=== PATIENT | female | born 1980 | race Caucasian/White ===

== ENCOUNTER → 2017-07-02 | Outpatient (CLI) | payer OTHER ==
--- NOTE | 2017-07-03 21:58 | US ---
EXAMINATION TYPE: US thyroid st tissue head/neck DATE OF EXAM: 07/02/2017 COMPARISON: NONE CLINICAL HISTORY: E04.9 Goiter,. Reginald disease, on medication GLAND SIZE: Right Lobe: 3.9 x 1.5 x 2.0 cm Overall Parenchyma: heterogenous Left Lobe: 4.5 x 1.6 x 1.6 cm Overall Parenchyma: heterogeneous Isthmus Thickness: 0.5 cm NODULES RIGHT: # of nodules measured on right: 0 LEFT: # of nodules measured on left: 0 ISTHMUS: # of nodules measured in the isthmus: 0 Bilateral neck scanned, no evidence of lymphadenopathy. Diffusely heterogenous IMPRESSION: Normal thyroid
--- NOTE | 2017-07-05 07:11 | USB ---
Reason for exam: clinical finding. Physical Findings: Nurse did not find any significant physical abnormalities on exam. US Breast BILAT Right breast ultrasound includes all four quadrants, the retroareolar region and axilla. Finding demonstrates no cystic or solid lesion seen. Left breast ultrasound includes all four quadrants, the retroareolar region and axilla. Finding demonstrates no cystic or solid lesion seen. These results were verbally communicated with the patient and result sheet given to the patient on 07/02/17. ASSESSMENT: Incomplete: need additional imaging evaluation, BI-RAD 0 RECOMMENDATION: Follow-up diagnostic mammogram of both breasts.
--- NOTE | 2017-07-05 07:12 | MM ---
Reason for exam: additional evaluation requested from abnormal screening. Baseline mammogram. MG 3D Diag Mammo W/Cad WICHO Bilateral CC and MLO view(s) were taken. The breast tissue is heterogeneously dense. This may lower the sensitivity of mammography. There is no discrete abnormality. These results were verbally communicated with the patient and result sheet given to the patient on 07/02/17. ASSESSMENT: Benign, BI-RAD 2 RECOMMENDATION: Routine screening mammogram of both breasts in 1 year. Manage on a clinical basis with regard to nipple discharge.
== END | disposition home or self-care (01) ==
LOC: RADUSWWP 14:48
PROVIDERS: ATTEND Family Medicine
DX: R92.8 Other abnormal and inconclusive findings on diagnostic imaging of breast (principal); N64.3 Galactorrhea not associated with childbirth; E04.9 Nontoxic goiter, unspecified
CPT/HCPCS: 76536; 76641; G0204; G0279

== ENCOUNTER → 2019-11-01 | Outpatient (CLI) | payer OTHER ==
--- NOTE | 2019-11-01 11:05 | US ---
EXAMINATION TYPE: US pelvic complete DATE OF EXAM: 11/01/2019 COMPARISON: NONE CLINICAL HISTORY: R10.32 left lower quad pain R31.9 blood in urine. Left pelvic pain and bleeding, 3, para 2, miscarriage 1, history of and tubal ligation. TECHNIQUE: . Transabdominal sonographic images of the pelvis were acquired. Transvaginal sonographi c images were medically necessary to better assess the following anatomy: ovaries and endometrium Date of LMP: 10/16/2019 EXAM MEASUREMENTS: Uterus: 9.4 x 4.7 x 5.7 cm Endometrial Stripe: 0.6 cm Right Ovary: 3.3 x 2.0 x 2.1 cm Left Ovary: 3.2 x 2.3 x 2.7 cm 1. Uterus: anteverted, mildly heterogeneous, multiple nabothian cysts 2. Endometrium: wnl 3. Right Ovary: wnl 4. Left Ovary: 1.7 x 1.5 x 1.6cm cyst Spectral, color and waveform doppler imaging shows good arterial and venous flow within the ovaries ; there is no evidence for ovarian torsion. 5. Bilateral Adnexa: wnl 6. Posterior cul-de-sac: small amount of free fluid IMPRESSION: 1. Uterine nabothian cysts within cervix. 2. Left ovarian cyst. Follow-up is recommended in 6 weeks or following the next normal menstrual ericka od.
== END | disposition home or self-care (01) ==
LOC: RADUSWWP 09:42
PROVIDERS: ATTEND Family Medicine
DX: N88.8 Other specified noninflammatory disorders of cervix uteri (principal); N83.202 Unspecified ovarian cyst, left side; Z88.8 Allergy status to other drugs, medicaments and biological substances; Z91.018 Allergy to other foods; Z91.040 Latex allergy status
CPT/HCPCS: 76830; 76856

== ENCOUNTER 2020-07-09 01:51 | Emergency (ER) | payer BC, OTHER ==
[2020-07-09 02:15] LABS: Appearance,Urine Cloudy (Clear); Bacteria,Urine Rare /hpf; Bilirubin,Urine Negative (Negative); Blood,Urine Moderate (Negative); Color,Urine Yellow; Glucose,Urine (UA) Negative (Negative); Ketones,Urine Negative (Negative); Leukocyte Esterase,Urine Moderate (Negative); Mucus,Urine Rare /hpf; Nitrite,Urine Negative (Negative); PH, Urine 5.5 (5.0-8.0); Protein,Urine Trace (Negative); RBC,Urine 72 /hpf (0-5); Specific Gravity,Urine 1.024 (1.001-1.035); Squamous Epithelial Cell,Urine 4 /hpf (0-4); Urobilinogen,Urine <2.0 mg/dL (<2.0); WBC,Urine 5 /hpf (0-5)
[2020-07-09] MEDS ORDERED: SODIUM CHLORIDE 0.9% 1,000 ML IV STA (02:21)
[2020-07-09] MEDS ORDERED: KETOROLAC 15 MG/ML 1 ML VIAL IVP STA (02:21)
--- NOTE | 2020-07-09 02:40 | ED ---
Abdominal Pain HPI - General Chief Complaint: Abdominal Pain Stated Complaint: Lt flank pain Time Seen by Provider: 07/09/20 02:05 Source: patient, family Mode of arrival: ambulatory Limitations: no limitations - History of Present Illness Initial Comments: Lucy is a 40 -year-old female who presents to the ER this morning for evaluation of severe left lower abdominal pain. Patient reports she had an episode similar to this approximately a month ago pain was located in her left side abdomen radiating into the pelvis. Previous episode lasted for a pproximately 2 hours and resolved. Patient reports she's been doing well since that time. She was in her usual state of health throughout the day today aside from having irregular frequent menses. Patient states that during the night she developed severe left-sided flank pain radiating into her pelvis. Pain is associated with urinary urgency but no dysuria. She is unable to assess that she's having any hematuria due to being on her menses. She denies any change in bowel habits. She has no history of diverticulitis, diverticulosis, Crohn's or ulcerative colitis. Patient has no history of kidney stones. - Related Data Home Medications Medication Instructions Recorded Confirmed Levothyroxine Sodium [Synthroid] 75 mcg PO DAILY 07/13/14 09/27/15 Magnesium Oxide [Mag-Ox] 400 mg PO DAILY 07/13/14 09/27/15 Methocarbamol [Robaxin] 1,000 mg PO QID 07/13/14 09/27/15 Montelukast [Singulair] 10 mg PO DAILY 07/13/14 09/27/15 RX: lisinopriL 40 mg PO DAILY 07/13/14 09/27/15 amLODIPine BESYLATE [Norvasc] 5 mg PO DAILY 07/13/14 09/27/15 hydroCHLOROthiazide [Hydrodiuril] 12.5 mg PO DAILY 07/13/14 09/27/15 traMADol HCl [Ultram] 50 mg PO Q4H PRN 07/13/14 09/27/15 Albuterol Sulfate [Ventolin HFA] 1 puff INHALATION BID 09/27/15 09/27/15 Previous Rx's Medication Instructions Recorded Levofloxacin [Levaquin] 500 mg PO DAILY #10 tab 09/27/15 RX: Albuterol Nebulized [Ventolin 2.5 mg INHALATION Q4H PRN #25 nebu 09/27/15 Nebulized] methylPREDNISolone [Medrol Dose 4 mg PO DIRECTED #1 pack 09/27/15 Pack] Ketorolac [Toradol] 10 mg PO Q6HR #20 tab 07/09/20 Ondansetron Odt [Zofran Odt] 4 mg PO Q8HR PRN #12 tab 07/09/20 Tamsulosin [Flomax] 0.4 mg PO DAILY #7 cap 07/09/20 Allergies Allergy/AdvReac Type Severity Reaction Status Date / Time avocado [Avocado] Allergy Rash/Hives Verified 07/09/20 02:01 banana [Banana] Allergy Rash/Hives Verified 07/09/20 02:01 kiwi Allergy Rash/Hives Verified 07/09/20 02:01 latex Allergy Rash/Hives Verified 07/09/20 02:01 water chestnut Allergy Swelling Verified 07/09/20 02:01 aspartame AdvReac Nausea Verified 07/09/20 02:01 Review of Systems ROS Statement: Those systems with pertinent positive or pertinent negative responses have been documented in the HPI. ROS Other: All systems not noted in ROS Statement are negative. Past Medical History Past Medical History: Asthma, Diabetes Mellitus, Fibromyalgia, Hyperlipidemia, Hypertension, Thyroid Disorder Additional Past Medical History / Comment(s): insomnia History of Any Multi-Drug Resistant Organisms: None Reported Past Surgical History: Section, Cholecystectomy, Tonsillectomy, Tubal Ligation Past Psychological History: No Psychological Hx Reported Smoking Status: Current every day smoker Past Alcohol Use History: None Reported Past Drug Use History: None Reported General Exam - General Exam Comments Initial Comments: Physical Exam GENERAL: Patient is well-developed and well-nourished. Patient is nontoxic and well-hydrated and is in no distress. HENT: Normocephalic, Atraumatic. EYES: PERRL, EOMI PULMONARY: Unlabored respirations. CARDIOVASCULAR: RRR Warm and well perfused extremities ABDOMEN: Non-distended Tender to palpation in LLQ and suprapubic Tender to percussion left flank SKIN: No rashes or bruising : Deferred NEUROLOGIC: Alert and oriented Normal speech Normal gait MUSCULOSKELETAL: Moving all extremities with no apparent injury PSYCHIATRIC: No SI/HI Limitations: no limitations Course Vital Signs 07/09/20 07/09/20 01:54 03:00 Temperature 98.4 F Pulse Rate 104 H 84 Respiratory 20 17 Rate Blood Pressure 133/91 125/70 O2 Sat by Pulse 99 98 Oximetry Medical Decision Making - Medical Decision Making She was seen and evaluated history is obtained from patient History and physical exam are concerning for left-sided flank pain likely kidney stone versus diverticulitis Even the patient's pain I offered morphine however she has a history of substance abuse would prefer to be treated with nonnarcotic medications. A single dose of Toradol was given Labs are obtained patient has mild acute kidney injury, IV fluid bolus is infusing Computed tomography scan confirms left-sided 6 mm UVJ stone Return to the room to discuss results with the patient who is sleeping soundly, pain is very well managed with Toradol At this time patient's comfortable with plan for discharge home, she'll be presc ribed Toradol, Zofran and Flomax and referred to urology for follow-up Close return parameters were discussed of questions pertaining care were answered patient is discharged home in stable condition - Lab Data Result diagrams: 07/09/20 02:34 07/09/20 02:34 Lab Results 07/09/20 07/09/20 07/09/20 Range/Units 02:07 02:34 02:34 WBC 14.2 H (3.8-10.6) k/uL RBC 4.53 (3.80-5.40) m/uL Hgb 14.0 (11.4-16.0) gm/dL Hct 42.6 (34.0-46.0) % MCV 94.1 (80.0-100.0) fL MCH 30.8 (25.0-35.0) pg MCHC 32.7 (31.0-37.0) g/dL RDW 12.4 (11.5-15.5) % Plt Count 276 (150-450) k/uL Neutrophils % 77 % Lymphocytes % 14 % Monocytes % 4 % Eosinophils % 3 % Basophils % 1 % Neutrophils # 11.0 H (1.3-7.7) k/uL Lymphocytes # 2.0 (1.0-4.8) k/uL Monocytes # 0.6 (0-1.0) k/uL Eosinophils # 0.4 (0-0.7) k/uL Basophils # 0.1 (0-0.2) k/uL Sodium 135 L (137-145) mmol/L Potassium 3.4 L (3.5-5.1) mmol/L Chloride 103 (98-107) mmol/L Carbon Dioxide 22 (22-30) mmol/L Anion Gap 10 mmol/L BUN 22 H (7-17) mg/dL Creatinine 1.33 H (0.52-1.04) mg/dL Est GFR (CKD-EPI)AfAm 58 (>60 ml/min/1.73 sqM) Est GFR (CKD-EPI)NonAf 50 (>60 ml/min/1.73 sqM) Glucose 185 H (74-99) mg/dL Calcium 9.5 (8.4-10.2) mg/dL Total Bilirubin 0.4 (0.2-1.3) mg/dL AST 17 (14-36) U/L ALT 13 (4-34) U/L Alkaline Phosphatase 78 (38-126) U/L Total Protein 7.3 (6.3-8.2) g/dL Albumin 4.1 (3.5-5.0) g/dL Lipase 174 (23-300) U/L Urine Color Yellow Urine Appearance Cloudy H (Clear) Urine pH 5.5 (5.0-8.0) Ur Specific [place] 1.024 (1.001-1.035) Urine Protein Trace H (Negative) Urine Glucose (UA) Negative (Negative) Urine Ketones Negative (Negative) Urine Blood Moderate H (Negative) Urine Nitrite Negative (Negative) Urine Bilirubin Negative (Negative) Urine Urobilinogen <2.0 (<2.0) mg/dL Ur Leukocyte Esterase Moderate H (Negative) Urine RBC 72 H (0-5) /hpf Urine WBC 5 (0-5) /hpf Ur Squamous Epith Cells 4 (0-4) /hpf Urine Bacteria Rare H (None) /hpf Urine Mucus Rare H (None) /hpf Disposition Clinical Impression: Nephrolithiasis Disposition: HOME SELF-CARE Condition: Stable Additional Instructions: As we discussed use of a kidney stone on the left side at the bladder, kidney stone measuring slightly over 6 mm. At this time the most important thing is pain management, he can take Toradol for pain, make sure he takes with food Make sure drinking plenty of fluids and staying hydrated, this will prevent injury to her kidney and will help pass the kidney stone. Return to the ER via any worsening pain, pain not managed by the home medications. Any fevers vomiting signs of infection or any new or concerning symptoms. Prescriptions: Tamsulosin [Flomax] 0.4 mg PO DAILY #7 cap Ketorolac [Toradol] 10 mg PO Q6HR #20 tab Ondansetron Odt [Zofran Odt] 4 mg PO Q8HR PRN #12 tab PRN Reason: nausea Is patient prescribed a controlled substance at d/c from ED?: No Referrals: Boubacar Kwok MD [Primary Care Provider] - 1-2 days Nael Ramirez MD [STAFF PHYSICIAN] - 1-2 days
[2020-07-09 02:43] LABS: Basophils # (A) 0.1 k/uL (0-0.2); Basophils % (A) 1 %; Eosinophils # (A) 0.4 k/uL (0-0.7); Eosinophils % (A) 3 %; HCT 42.6 % (34.0-46.0); Lymphocytes % (A) 14 %; MCH 30.8 pg (25.0-35.0); MCHC 32.7 g/dL (31.0-37.0); MCV 94.1 fL (80.0-100.0); Mean Platelet Volume 7.7; Monocytes # (A) 0.6 k/uL (0-1.0); Monocytes % (A) 4 %; Neutrophils % (A) 77 %; Platelet Count 276 k/uL (150-450); RBC 4.53 m/uL (3.80-5.40); RDW 12.4 % (11.5-15.5); WBC 14.2 k/uL (3.8-10.6)
[2020-07-09 02:55] LABS: Albumin 4.1 g/dL (3.5-5.0); Calcium 9.5 mg/dL (8.4-10.2); Potassium 3.4 mmol/L (3.5-5.1); Total Bilirubin 0.4 mg/dL (0.2-1.3); Total Protein 7.3 g/dL (6.3-8.2)
--- NOTE | 2020-07-09 03:59 | CT ---
EXAM: CT Abdomen and Pelvis With Intravenous Contrast CLINICAL HISTORY: LLQ pain TECHNIQUE: Axial computed tomography images of the abdomen and pelvis with intravenous contrast. CTDI is 45.07 mGy and DLP is 2153.80 mGy-cm. This CT exam was performed using one or more of the following dose reduction techniques: automated exposure control, adjustment of the mA and/or kV according to patient size, and/or use of iterative reconstruction technique. COMPARISON: No relevant prior studies available. FINDINGS: Limitations: There is respiratory artifact which degrades image quality on multiple image slices. Lung bases: Unremarkable. No mass. No consolidation. ABDOMEN: Liver: Unremarkable. No mass. Gallbladder and bile ducts: Status post cholecystectomy. No ductal dilation. Pancreas: Unremarkable. No mass. No ductal dilation. Spleen: Unremarkable. No splenomegaly. Adrenals: Unremarkable. No mass. Kidneys and ureters: 6.7 mm distal left ureteral stone adjacent to the left UVJ with proximal mild left ureterectasis, perinephric and periureteral fat stranding. Only minimal left caliectasis. The right kidney demonstrates normal enhancement without hydronephrosis or obstructing calcifications. Delayed phase imaging demonstrates normal excreted contrast in the right renal collecting system. There is delayed excretion involving the left renal collecting system. Stomach and bowel: Unremarkable. No obstruction. No mucosal thickening. PELVIS: Appendix: No findings to suggest acute appendicitis. Bladder: Unremarkable. No mass. Reproductive: Unremarkable as visualized. ABDOMEN and PELVIS: Intraperitoneal space: Unremarkable. No free air. No significant fluid collection. Bones/joints: No acute fracture. No dislocation. Soft tissues: Unremarkable. Vasculature: Unremarkable. No abdominal aortic aneurysm. Lymph nodes: Unremarkable. No enlarged lymph nodes. IMPRESSION: 6.7 mm distal left ureteral stone adjacent to the left UVJ with proximal mild left ureterectasis, perinephric and periureteral fat stranding. Only minimal left caliectasis.
[2020-07-09 05:17] VITALS: BP 125/84; PULSE 73; RESP 18; TEMP 97.6
== END 2020-07-09 05:12 | disposition home or self-care (01) ==
LOC: EC 01:51
DX: N20.2 Calculus of kidney with calculus of ureter (principal); N17.9 Acute kidney failure, unspecified; J45.909 Unspecified asthma, uncomplicated; M79.7 Fibromyalgia; I10 Essential (primary) hypertension; E07.9 Disorder of thyroid, unspecified; F17.200 Nicotine dependence, unspecified, uncomplicated; Z79.890 Hormone replacement therapy; Z79.51 Long term (current) use of inhaled steroids; Z79.899 Other long term (current) drug therapy; Z91.018 Allergy to other foods; Z91.040 Latex allergy status; Z90.49 Acquired absence of other specified parts of digestive tract; Z98.890 Other specified postprocedural states; Z98.51 Tubal ligation status
CPT/HCPCS: 36415; 80053; 83690; 85025; 81001; 74177; 99284; 96374; 96361 ×2; J1885; Q9967

== ENCOUNTER → 2020-08-15 | Outpatient (CLI) | payer BC, OTHER ==
--- NOTE | 2020-08-16 07:56 | XR ---
EXAMINATION TYPE: XR KUB DATE OF EXAM: 08/15/2020 COMPARISON: CT abdomen pelvis 07/09/2020 HISTORY: Left-sided kidney stone TECHNIQUE: Supine abdomen FINDINGS: Surgical clips are in the left midabdomen and left hemipelvis and within the right upper qu adrant. A right hemipelvis tubal ligation clip is not identified. Normal bowel gas is present. Mild f ecal debris is through the colon. Psoas margins are normal. No mass effect is evident. No suspicious renal calcifications. There appears to be persistent of the distal left ureteral calcification left h emipelvis. IMPRESSION: 1. Persistent calcification within the left hemipelvis may be a distal ureteral stones.
== END | disposition home or self-care (01) ==
LOC: RAD 16:36
PROVIDERS: ATTEND Urology
DX: N20.1 Calculus of ureter (principal)
CPT/HCPCS: 74018

== ENCOUNTER → 2020-08-20 | Outpatient (CLI) | payer BC, OTHER ==
[2020-08-20 12:10] LABS: Basophils # (A) 0.1 k/uL (0-0.2); Basophils % (A) 1 %; Eosinophils # (A) 0.4 k/uL (0-0.7); Eosinophils % (A) 4 %; HGB 14.5 gm/dL (11.4-16.0); Lymphocytes # (A) 2.2 k/uL (1.0-4.8); Lymphocytes % (A) 25 %; MCH 31.5 pg (25.0-35.0); MCHC 34.5 g/dL (31.0-37.0); MCV 91.4 fL (80.0-100.0); Mean Platelet Volume 7.7; Monocytes # (A) 0.4 k/uL (0-1.0); Monocytes % (A) 4 %; Neutrophils # (A) 5.8 k/uL (1.3-7.7); Neutrophils % (A) 64 %; Platelet Count 276 k/uL (150-450); RBC 4.59 m/uL (3.80-5.40); RDW 12.2 % (11.5-15.5)
[2020-08-20 12:32] LABS: Calcium 9.3 mg/dL (8.4-10.2)
== END | disposition home or self-care (01) ==
LOC: LABPAT 10:52
PROVIDERS: ATTEND Urology
DX: Z01.818 Encounter for other preprocedural examination (principal); N20.1 Calculus of ureter
CPT/HCPCS: 80048; 85025

== ENCOUNTER 2020-08-29 07:44 | Day surgery (SDC) | payer BC, OTHER ==
[2020-08-27 08:50] VITALS: BMI 40.6
--- NOTE | 2020-08-28 16:44 | P.GSHP ---
History of Present Illness H&P Date: 08/19/20 Chief Complaint: Left-sided abdominal pain, urinary urgency The patient is a 40-year-old white female with no prior history of urolithiasis. She experienced left flank and left lower quadrant abdominal pain in June 2020. A computed tomography scan showed mild left hydronephrosis due to a 7 mm left distal ureteral calculus. She continues to experience intermittent pain, associated with urinary frequency and urgency. A KUB x-ray shows a calculus at the left ureterovesical junction. Alternative treatment options were reviewed in detail. These include continued observation, ESWL, and ureteroscopy with laser lithotripsy. She has elected to undergo the latter. - Constitutional Constitutional: Reports chills - Gastrointestinal Gastrointestinal: Reports nausea, Reports vomiting - Genitourinary (Female) Genitourinary: Reports flank pain, Reports urgency, Reports urinary frequency, Denies hematuria Past Medical History Past Medical History: Asthma, Diabetes Mellitus, Fibromyalgia, Hyperlipidemia, Hypertension, Thyroid Disorder Additional Past Medical History / Comment(s): insomnia History of Any Multi-Drug Resistant Organisms: None Reported Past Surgical History: Section, Cholecystectomy, Tonsillectomy, Tubal Ligation Past Psychological History: No Psychological Hx Reported Smoking Status: Current every day smoker Past Alcohol Use History: None Reported Past Drug Use History: None Reported - Past Family History Father Family Medical History: Cancer Medications and Allergies Home Medications Medication Instructions Recorded Confirmed Type Methocarbamol [Robaxin] 1,000 mg PO QID 07/13/14 08/27/20 History amLODIPine BESYLATE [Norvasc] 5 mg PO DAILY 07/13/14 08/27/20 History hydroCHLOROthiazide [Hydrodiuril] 12.5 mg PO DAILY 07/13/14 08/27/20 History lisinopriL 40 mg PO DAILY 07/13/14 08/27/20 History Albuterol Nebulized [Ventolin 2.5 mg INHALATION Q4H PRN #25 nebu 09/27/15 08/27/20 Rx Nebulized] Albuterol Sulfate [Ventolin HFA] 1 puff INHALATION BID 09/27/15 08/27/20 History Levothyroxine Sodium [Synthroid] 150 mcg PO DAILY 08/27/20 08/27/20 History Semaglutide [Ozempic] 0.25 mg SQ SA 08/27/20 08/27/20 History traMADol HCl [Ultram] 50 mg PO Q4HR PRN 08/27/20 08/27/20 History Allergies Allergy/AdvReac Type Severity Reaction Status Date / Time avocado [Avocado] Allergy Rash/Hives Verified 08/27/20 08:39 banana [Banana] Allergy Rash/Hives Verified 08/27/20 08:39 kiwi Allergy Rash/Hives Verified 08/27/20 08:39 latex Allergy Rash/Hives Verified 08/27/20 08:39 water chestnut Allergy Swelling Verified 08/27/20 08:39 aspartame AdvReac Nausea Verified 08/27/20 08:39 Surgical - Exam - General well developed, well nourished, no distress - Neck no masses, trachea midline - Respiratory normal respiratory effort, clear to auscultation - Cardiovascular Rhythm: regular Abnormal Heart Sounds: no systolic murmur, no diastolic murmur, no rub, no S3 Gallop, no S4 Gallop, no click, no other - Abdomen Abdomen: soft, tender (Mild left lower quadrant tenderness to palpation), no guarding, no rigid, no rebound - Psychiatric oriented to time, oriented to person, oriented to place, speech is normal, memory intact Results - Imaging CT scan - abdomen: report reviewed, image reviewed CT scan - pelvis: report reviewed, image reviewed Assessment and Plan (1) Calculus of ureter Status: Acute Code(s): N20.1 - CALCULUS OF URETER SNOMED Code(s): 17811077 Plan: Cystoscopy, left ureteroscopy with Holmium laser lithotripsy, possible stone basketing, possible left ureteral stent insertion. The procedure has been reviewed in detail with the patient. She has been made aware of potential risks, which include anesthesia, bleeding, infection, inability to successfully remove the calculus, and ureteral injury. She is aware of the possible need for a ureteral stent postoperatively.
[~2020-08-29 07:44] MED LIST: DEXAMETHASONE SOD PHOSPHATE 4 MG/ML 1 ML VIAL IV ONE; HYDROmorphone 0.5 MG/0.5 ML SYRINGE IVP PRN; LACTATED RINGERS 1,000 ML IV SCH; LIDOCAINE 1% (10MG/ML) FOR IV START INTRADERMA PRN; MIDAZOLAM 2 MG/2 ML VIAL IV PRN; ONDANSETRON 4 MG/2 ML VIAL IVP ONE
[2020-08-29 08:07] VITALS: RESP 16
[2020-08-29 08:30] LABS: Glucose,Whole Blood 151 mg/dL (75-99)
[2020-08-29] MEDS ORDERED: PROPOFOL 10 MG/ML 20 ML VIAL IV ONE (09:05)
[2020-08-29] MEDS ORDERED: LIDOCAINE 1% INJ 10MG/ML (20 ML MDV) ONE (09:05)
[2020-08-29] MEDS ORDERED: fentaNYL (PF) 50 MCG/ML 2 ML AMP ONE (09:05)
[2020-08-29] MEDS ORDERED: SUCCINYLCHOLINE CHLORIDE 100 MG/5 ML SYR IV ONE (09:05)
[2020-08-29] MEDS ORDERED: MIDAZOLAM 2 MG/2 ML VIAL ONE (09:05)
[2020-08-29 09:07] LABS: African American GFR (CKD) >90 (>60 ml/min/1.73 sqM); Anion Gap 7 mmol/L; Blood Urea Nitrogen 12 mg/dL (7-17); Calcium 8.4 mg/dL (8.4-10.2); Carbon Dioxide 23 mmol/L (22-30); Chloride 106 mmol/L (98-107); Glucose 133 mg/dL (74-99); Non-African American GFR(CKD) >90 (>60 ml/min/1.73 sqM); Potassium 3.8 mmol/L (3.5-5.1); Sodium 136 mmol/L (137-145)
[2020-08-29] MEDS ORDERED: IOPAMIDOL-370 50ML BTL MISCELLANE ONE ×2 (09:35)
--- NOTE | 2020-08-29 10:08 | P.OP ---
Date of Procedure: 08/29/20 Preoperative Diagnosis: Left ureteral calculus Postoperative Diagnosis: Same Procedure(s) Performed: Cystoscopy, left retrograde pyelogram, left ureteroscopy with Holmium laser lithotripsy Anesthesia: SOHANA Surgeon: Nael Ramirez Estimated Blood Loss (ml): 0 IV fluids (ml): 800 Pathology: none sent Condition: stable Disposition: PACU Indications for Procedure: The patient is a 40-year-old white female with no prior history of urolithiasis. She experienced left flank and left lower quadrant abdominal pain in June 2020. A computed tomography scan showed mild left hydronephrosis due to a 7 mm left distal ureteral calculus. She continues to experience intermittent pain, associated with urinary frequency and urgency. A KUB x-ray shows a calculus at the left ureterovesical junction. Alternative treatment options were reviewed in detail. These include continued observation, ESWL, and ureteroscopy with laser lithotripsy. She has elected to undergo the latter. Operative Findings: Left distal ureteral calculus, fragmented completely. Description of Procedure: The patient was taken to the operating room and placed in the dorsolithotomy position, with legs supported in Stewart stirrups. The external genitalia was prepped and draped sterilely. The 30 lens was used to introduce the None cystoscopic sheath through the urethra and into the bladder under direct vision. The bladder was examined in its entirety. Both ureteral orifices were normal anatomic location and configuration, and clear urine effluxed from both. No tumors or foreign bodies were seen. Using a 10-[place] cone-tipped catheter, a left retrograde pyelogram was performed. The calculus was identified 1-2 cm proximal to the ureterovesical junction. The cystoscope was removed. The Rí[place] semirigid ureteroscope was advanced into the bladder, and the left ureteral orifice was cannulated. The ureteroscope was advanced up to the calculus, which measured approximately 5 mm in size. The 200 micron Holmium laser probe was passed through the ureteroscope, and lithotripsy was performed utilizing a dusting mode with retropulsion. The calculus fragmented well. This was done until the only remaining particles were dustlike in size. The semirigid ureteroscope was removed, and the flexible ureteroscope was passed into the bladder. The left ureteral orifice was cannulated, and the ureteroscope was advanced up to the left renal pelvis to ensure that a calculus fragment had not migrated proximally. No additional calculus fragments were identified. The ureter was inspected as the ureteroscope was withdrawn. There was minimal edema at the site of the calculus impaction, but no evidence of ureteral truama. The patient tolerated the procedure well and was taken to the recovery room in stable cond ition. [facility] [place] Report: Procedure Acuity: Elective Stone Size and Location: 5 mm, left distal ureter Ureteral Dilation: No Ureteral Access Sheath Used: No Stone Sent for Analysis: No All Stones/Fragments Were Removed with a Basket: No Complications: No Preoperative Antibiotics Given: Yes Stent Placed: No Discharge Medications: None
[2020-08-29 10:17] VITALS: TEMP 97.7
--- NOTE | 2020-08-29 10:56 | XR ---
EXAMINATION TYPE: XR KUB DATE OF EXAM: 08/29/2020 COMPARISON: 08/15/2020 INDICATION: Preop left ureteral calculus TECHNIQUE: Single view abdomen supine view FINDINGS: There is a normal bowel gas pattern. Psoas margins are normal. No organomegaly is present. Surgical clips are within the pelvis and pelvic inlet. Calcifications are in the lower lateral left p jacky appears stable from the comparison IMPRESSION: 1. No significant change from comparison.
--- NOTE | 2020-08-29 11:01 | FL ---
Fluoroscopy INDICATION: Pain FINDINGS: Fluoroscopy time: 29 seconds. Images obtained: 2. IMPRESSIONS: 1. Documentation of fluoroscopy.
[2020-08-29 11:41] VITALS: BP 112/73; PULSE 87
== END 2020-08-29 11:45 | disposition home or self-care (01) ==
LOC: OR 07:44
PROVIDERS: ATTEND Urology
DX: N13.2 Hydronephrosis with renal and ureteral calculous obstruction (principal); I10 Essential (primary) hypertension; E78.5 Hyperlipidemia, unspecified; J45.909 Unspecified asthma, uncomplicated; E11.9 Type 2 diabetes mellitus without complications; M79.7 Fibromyalgia; E07.9 Disorder of thyroid, unspecified; G47.00 Insomnia, unspecified; Z90.49 Acquired absence of other specified parts of digestive tract; Z98.891 History of uterine scar from previous surgery; Z98.51 Tubal ligation status; Z90.89 Acquired absence of other organs; F17.200 Nicotine dependence, unspecified, uncomplicated; Z80.9 Family history of malignant neoplasm, unspecified; Z79.890 Hormone replacement therapy; Z79.899 Other long term (current) drug therapy; Z91.040 Latex allergy status; Z91.018 Allergy to other foods
CPT/HCPCS: 81025; 80048; 74420; 74018; 52353; C1758; J2250; J1100; J0690; J2405; J2001; J3010; J0330; J2704; Q9967

== ENCOUNTER → 2023-11-08 | Outpatient (CLI) | payer OTHER ==
--- NOTE | 2023-11-08 21:17 | MR ---
EXAMINATION TYPE: MR knee RT wo con DATE OF EXAM: 11/08/2023 COMPARISON: None HISTORY: Right knee Pain and swelling TECHNIQUE: Multiplanar, multisequence imaging of the right knee is performed without IV contrast. FINDINGS: The osseous structures are intact with no bone contusion or fracture. There is a large joint effusion. This surface of the lateral patellar facet cartilage is irregular and there is abnormal signal intens ity consistent with chondromalacia patella and fraying of the cartilage. There is no significant thin kari of the cartilage in all 3 compartments of the knee. The collateral and cruciate ligaments are intact. There is no meniscal tear. The patellar and quadriceps tendons are intact. IMPRESSION: 1. Large joint effusion. 2. 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 3. No ligamentous or meniscal injury.
== END | disposition home or self-care (01) ==
LOC: RADMRIMAIN 19:45
PROVIDERS: ATTEND Orthopaedic Surgery
DX: M23.8X1 Other internal derangements of right knee (principal); M23.306 Other meniscus derangements, unspecified meniscus, right knee; M25.461 Effusion, right knee; F17.210 Nicotine dependence, cigarettes, uncomplicated; M22.41 Chondromalacia patellae, right knee